=== PATIENT | female | born 1960 | race Caucasian/White ===

== ENCOUNTER 2019-01-03 17:07 | Emergency (ER) | payer OTHER ==
[2019-01-03 17:33] VITALS: BP 112/75
[2019-01-03] MEDS ORDERED: Acetaminophen TAB* 325 MG PO ONE (17:44)
--- NOTE | 2019-01-03 17:46 | UC ---
UC General HPI - HPI Summary HPI Summary: patient presents to urgent care with a family member. Patient's a 58-year-old woman who states she takes fluoxetine for depression but no other medications. Patient here for evaluation of a wound on her right lower cavity. Patient states 2 weeks ago she went to urgent care for evaluation of her wound. States he did blood work and sent her home. Patient states since this time is progressively become more red and painful. Patient states she's been having increased discharge and odor from the wound. Patient denies fevers. Patient has had nausea and vomiting. Per family she vomits everything she eats. Patient had food for dinner and vomited this up. Patient is not a diabetic. Patient reports earlier today she had maggots on the wound. Nonvisible currently. Patient does not know her last tetanus was. Patient states she takes no other medicines other than that mentioned. Patient is having difficulty related to the pain in the legs right worse than left. - History of Current Complaint Chief Complaint: Krystal Stated Complaint: BILATERAL LEG COMPLAINT Time Seen by Provider: 01/03/19 17:18 Hx Last Menstrual Period: n/a Onset Severity: Mild Current Severity: Severe Pain Intensity: 9 - Allergy/Home Medications Allergies/Adverse Reactions: Allergies Allergy/AdvReac Type Severity Reaction Status Date / Time Penicillins Allergy Difficulty Verified 01/03/19 17:16 Breathing, rash PMH/Surg Hx/FS Hx/Imm Hx Previously Healthy: Yes Psychological History: Depression Other History Of: Negative For: HIV, Hepatitis B, Hepatitis C, Anticoagulant Therapy - Surgical History Surgical History: Yes Surgery Procedure, Year, and Place: C SECTION 1982,. c sect, tubal lig, kidneys flushed - Family History Known Family History: Positive: None Negative: Hypertension, Blood Disorder - Social History Alcohol Use: None Substance Use Type: None Smoking Status (MU): Never Smoked Tobacco - Immunization History Most Recent Tetanus Shot: 10/21/15 Review of Systems All Other Systems Reviewed And Are Negative: Yes Constitutional: Positive: Fatigue Skin: Positive: Other - Open draining wounds look from a right worse than left Eyes: Positive: Negative ENT: Positive: Negative Respiratory: Positive: Negative Cardiovascular: Positive: Negative Gastrointestinal: Positive: Vomiting Musculoskeletal: Positive: Other: - Bilateral lower extremity pain Neurological: Positive: Negative - What test requested. That she wanted to get the results of Psychological: Positive: Negative Is Patient Immunocompromised?: No Physical Exam - Summary Physical Exam Summary: Vital Signs Reviewed: Yes A+Ox3, discomfort, tired appearing Eyes: Conjunctiva Clear, MIGUELINA. EOM intact and full - sallow appearing ENT: Hearing grossly normal TM x 2 clear, mmpasty, uvula midline, no exudate, no erythema Neck: Positive: Supple Respiratory: Positive: No respiratory distress, No accessory muscle use + CTA throughout no w/r Cardiovascular: RRR nl s1, s2 no m/r CBT <2 sec abd soft + BS nt/nd no guarding, no distension Musculoskeletal Exam: SOUSA x 4 without difficulty Strength Intact, ROM Intact - pain with SLE b/l LE - pt difficulty ambulating second to pain in LE Neurological: Positive: Alert, + sensation throughout Psychological: Positive: Normal Response To examiner Skin: Positive: pt with large 5x7cm open wound right anterior lower leg/gary with thick white. purulent discharge and malodor + TTP. no crepitus Triage Information Reviewed: Yes Vital Signs: Initial Vital Signs Temp 100 F 01/03/19 17:20 Pulse 116 01/03/19 17:20 Resp 28 01/03/19 17:20 BP 112/75 01/03/19 17:20 Pulse Ox 98 01/03/19 17:20 Course/Dx - Course Course Of Treatment: Patient presents to urgent care reporting progressive discharged pain and difficulty walking due to a lesion on her right lower extremity. Patient states it developed an older thick white discharge for the last several days. Patient denies fevers but has been vomiting all by mouth intake. Patient without fevers or chills. Patient has not taken anything for pain and follow up with her doctor. Patient's H&H evaluation 82 weeks ago and was normal. On exam patient noted to be tachycardic with a borderline fever. Patient's blood pressure oxygen sat respiratory rate ligament concerning. Exam patient appears ill and weak. Strong odor from the room concerning for stimulus and strep infection. Patient with a large open draining wound to her right lower extremity. Discussed with patient and family member needs to emergency further evaluation and treatment. Patient adamant she did not go. Discussed with patient that she needs blood work and intravenous medications cannot be provided. After much discussion, patient agreeable to the emergency department for evaluation but states she "will not be admitted" patient agrees to go have baseline evaluation. He spoke to Jaimee Phipps NP working in the ED -aware patient is coming and aware of the history. Patient will be discharged by private vehicle after given dose of Tylenol for her pain and fever - Diagnoses Provider Diagnosis: Wound infection, Vomiting Discharge ED - Sign-Out/Discharge Documenting (check all that apply): Patient Departure All imaging exams completed and their final reports reviewed: No Studies - Discharge Plan Condition: Stable Disposition: HOME-RECOMMEND TO ED Patient Education Materials: Wound Infection (ED) Referrals: VALENTINA Servin [Primary Care Provider] - Additional Instructions: The doctor that evaluated you today thinks that you need additional testing that can be completed the emergency department. It is recommended that you go directly to emergency department for further evaluation. This evaluation included blood work or imaging. This testing will be directed and decided by the provider that evaluates you at the emergency department. If pain becomes worse, you feel lightheaded, you have uncontrolled vomiting, or you have any other concerns while you are being driven to emergency department as recommended to pullover and contact 911. He wanted to undergo elective - Billing Disposition and Condition Condition: STABLE Disposition: Home-Recommend to ED
== END 2019-01-03 17:53 | disposition home health service (06) ==
LOC: UCCORT 17:07
DX: S80.921D Unspecified superficial injury of right lower leg, subsequent encounter (principal); R11.2 Nausea with vomiting, unspecified; L08.9 Local infection of the skin and subcutaneous tissue, unspecified; F32.9 Major depressive disorder, single episode, unspecified; Z88.0 Allergy status to penicillin; X58.XXXD Exposure to other specified factors, subsequent encounter
CPT/HCPCS: 99202; A9270-GY; G0463